=== PATIENT | male | born 1950 | race Caucasian/White ===

== ENCOUNTER 2021-08-11 21:42 | Emergency (ER) | payer MEDICARE, SELFPAY ==
[2021-08-11 22:02] VITALS: BP 154/79; PULSE 61; RESP 18; TEMP 36.9; O2SAT 97; BMI 24.3
--- NOTE | 2021-08-11 23:23 | CTR_ITS ---
PROCEDURE INFORMATION: Exam: CT Abdomen And Pelvis Without Contrast Exam date and time: 08/11/2021 11:40 PM Age: 71 years old Clinical indication: Abdominal pain; Prior surgery; Surgery type: Appy; Patient HX: C/O left flank pain TECHNIQUE: Imaging protocol: Computed tomography of the abdomen and pelvis without contrast. Radiation optimization: All CT scans at this facility use at least one of these dose optimization techniques: automated exposure control; mA and/or kV adjustment per patient size (includes targeted exams where dose is matched to clinical indication); or iterative reconstruction. COMPARISON: No relevant prior studies available. RADIATION DOSE METRICS: Total DLP (mGy-cm): 703.52 FINDINGS: Lungs: There is subsegmental atelectasis in the lung bases. Liver: The liver is normal. Gallbladder and bile ducts: The gallbladder is normal. There is no biliary dilation. Pancreas: The pancreas is unremarkable. Spleen: The spleen is unremarkable. Adrenal glands: The adrenal glands are unremarkable. Kidneys and ureters: There are nonobstructive stones in the left kidney measuring up to 2 mm. Mild left hydronephrosis and hydroureter. 3 x 3 x 2 mm stone in the distal left ureter 3 cm above the ureterovesical junction. See coronal series 602, image 23. There is a solitary nonobstructive 2 mm stone in the right kidney. There is no hydronephrosis or ureteral dilation on the right. Stomach and bowel: The stomach is decompressed, preventing meaningful evaluation of wall thickness. The small bowel is nondilated. The colon is unremarkable. Appendix: The appendix is not visible. Intraperitoneal space: There is no free air or significant intraperitoneal free fluid. Vasculature: There is mild aortic atherosclerotic disease. The portal, splenic and superior mesenteric veins are patent. Lymph nodes: There is no lymphadenopathy in the retroperitoneum, mesentery, pelvis or inguinal regions. Urinary bladder: The urinary bladder is unremarkable. Reproductive: The prostate and seminal vesicles are unremarkable. Bones/joints: Mild lower lumbar degenerative disc disease. The pelvis and hips are unremarkable. Soft tissues: The abdominal wall is intact. CT/CT kidney stone [id number] IMPRESSION: 1. 3 mm obstructive stone in the distal left ureter producing mild hydronephrosis. 2. Bilateral nonobstructive nephrolithiasis 3. Incidental findings above.
--- NOTE | 2021-08-11 23:24 | W.ED.GENADLT ---
HPI - General Adult General: Chief complaint: General Medical Stated complaint: injured back Time Seen by Provider: 08/11/21 23:23 History of Present Illness: 71-year-old male patient comes in with sudden onset of left flank pain radiating into his left lower abdomen. Patient reports pain is improved since throwing up in the emergency waiting room. Patient denies any chronic medical problems. Patient reports no routine medications. Patient does smoke cigarettes. Associated symptoms: Deny chest pain or dyspnea Review of Systems General: Reports: 10 or more systems reviewed and unremarkable except in HPI and below Card: Denies: chest pain Resp: Denies: dyspnea GI: Reports: abdominal pain : Reports: flank pain Physical Exam Const: COMMON NORMALS: no acute distress HENMT: COMMON NORMALS: normocephalic HEAD & SCALP: normocephalic Neck/C-Spine: COMMON NORMALS: full ROM Resp: COMMON NORMALS: normal respiratory effort and clear to auscultation bilaterally AUSCULTATION: clear to auscultation bilaterally Cardio: COMMON NORMALS: regular rate RATE: regular rate GI: AUSCULTATION: Yes normoactive bowel sounds PALPATION: Yes Tenderness to palpation present (GI) Details: LUQ : BLADDER/KIDNEY EXAM: Yes CVA tenderness on the left Back/Pelvis: GENERAL BACK: Yes CVA tenderness Extremity: COMMON NORMALS: normal to inspection Skin: COMMON NORMALS: no rashes or lesions noted GENERAL SKIN EXAM: no rashes or lesions noted Course Vital Signs: Vital signs: Vital Signs Temperature 98.5 F 08/11/21 22:02 Pulse Rate 61 08/11/21 22:02 Respiratory Rate 18 08/12/21 00:15 Blood Pressure 154/79 08/11/21 22:02 Pulse Oximetry 97 08/11/21 22:02 [facility] - General Adult Medical Decision Making 71-year-old male patient comes in today with left flank pain radiating around to his abdomen. Patient also reports some nausea and vomiting. Patient reports no previous episodes of similar events. Patient does have a history of chronic back pain. On exam patient appears in moderate pain. The patient does report some improvement in pain since arriving to the ER. Differential diagnosis includes but not limited to diverticulitis, renal calculi, urinary tract infection. Urinalysis had a gross amount of blood, CBC was unremarkable, CMP was unremarkable. Lipase was normal. Patient was treated with ketorolac, morphine, and Zofran with relief of all pain and discomfort. CT noted a stone in the lower third of the ureter on the left side. No significant hydronephrosis was noted. Reviewed exam with patient with recommendations for treatment follow-up with urology. Recommend return to the ER for worsening symptoms or new concerns. Patient reported understanding agreed to plan. Lab Data : 08/12/21 00:02 08/12/21 00:02 Laboratory Results WBC 8.4 10^3/uL (4.0-10.0) 08/12/21 00:02 RBC 4.56 10^6/uL (4.1-5.3) 08/12/21 00:02 Hgb 15.3 g/dL (11.7-16.6) 08/12/21 00:02 Hct 44.4 % (42.0-52.0) 08/12/21 00:02 MCV 97.4 fl (80-94) H 08/12/21 00:02 MCH 33.6 pg (28.0-34.0) 08/12/21 00:02 MCHC 34.5 g/dL (30.0-36.0) 08/12/21 00:02 RDW 11.9 % (12.1-15.1) L 08/12/21 00:02 Plt Count 203 10^3/cmm (130-400) 08/12/21 00:02 MPV 11.4 fL (7.4-10.4) H 08/12/21 00:02 Neut % (Auto) 79.6 % 08/12/21 00:02 Lymph % (Auto) 14.2 % 08/12/21 00:02 Cherry % (Auto) 4.9 % 08/12/21 00:02 Eos % (Auto) 0.2 % 08/12/21 00:02 Baso % (Auto) 0.7 % 08/12/21 00:02 Neut # (Auto) 6.72 10^3/uL (1.8-7.7) 08/12/21 00:02 Lymph # (Auto) 1.2 10^3/uL (0.8-4.8) 08/12/21 00:02 Cherry # (Auto) 0.4 10^3/uL (0.2-0.9) 08/12/21 00:02 Eos # (Auto) 0.0 10^3/uL (0.0-0.8) 08/12/21 00:02 Baso # (Auto) 0.1 10^3/uL (0.0-0.1) 08/12/21 00:02 Nucleated RBC % (auto) 0 % 08/12/21 00:02 Nucleated RBCs # 0.0 /100WBC 08/12/21 00:02 Sodium 138 mmol/L (136-145) 08/12/21 00:02 Potassium 4.1 mmol/L (3.5-5.1) 08/12/21 00:02 Chloride 103 mmol/L (98-107) 08/12/21 00:02 Carbon Dioxide 22 mmol/L (22-29) 08/12/21 00:02 Anion Gap 17.1 (5-19) 08/12/21 00:02 BUN 18 mg/dL (8-23) 08/12/21 00:02 Creatinine 1.0 mg/dL (0.7-1.2) 08/12/21 00:02 GFR Calculation 74.1 mL/min (90-130) L 08/12/21 00:02 Glucose 117 mg/dL (65-115) H 08/12/21 00:02 Calculated Osmolality 289 mOsm/kg (285-295) 08/12/21 00:02 Calcium 9.6 mg/dL (8.5-10.5) 08/12/21 00:02 Total Bilirubin 0.6 mg/dL (0.15-1.2) 08/12/21 00:02 AST 25 U/L (0-40) 08/12/21 00:02 ALT 20 U/L (0-41) 08/12/21 00:02 Alkaline Phosphatase 77 IU/L (40-130) 08/12/21 00:02 Total Protein 7.8 g/dL (6.6-8.7) 08/12/21 00:02 Albumin 4.7 g/dL (3.5-5.2) 08/12/21 00:02 Globulin 3.1 g/dL (1.3-4.6) 08/12/21 00:02 Lipase 21 U/L (13-60) 08/12/21 00:02 Urine Color Dark yellow (Yellow) 08/12/21 00:02 Urine Appearance Clear (CLEAR) 08/12/21 00:02 Urine pH 5 (5-7) 08/12/21 00:02 Ur Specific [place] 1.025 (1.005-1.030) 08/12/21 00:02 Urine Protein 1+ (Negative) H 08/12/21 00:02 Urine Glucose (UA) Norm (Normal) 08/12/21 00:02 Urine Ketones 2+ (Negative) H 08/12/21 00:02 Urine Blood 3+ (Negative) H 08/12/21 00:02 Urine Nitrate Negative (Negative) 08/12/21 00:02 Urine Bilirubin Neg (Negative) 08/12/21 00:02 Urine Urobilinogen Norm mg/dL (Negative) 08/12/21 00:02 Ur Leukocyte Esterase Negative (Negative) 08/12/21 00:02 Urine RBC Too numerous to cnt /hpf (0-2) H 08/12/21 00:02 Urine WBC 0-4 /hpf (0-5) H 08/12/21 00:02 Ur Squamous Epith Cells 0-4 /hpf (0-5) H 08/12/21 00:02 Amorphous Sediment Not Reportable 08/12/21 00:02 Urine Bacteria Trace /hpf (NONE) 08/12/21 00:02 Urine Mucus 4+ /hpf 08/12/21 00:02 Discharge Plan Discharge Patient Disposition: Home Clinical Impression: Calculus of left ureter Condition: Stable Prescriptions: New hydrocodone-acetaminophen 5-325 mg tablet 1 tab PO Q6H PRN (Reason: pain (scale score 7-10)) Qty: 20 0RF tamsulosin 0.4 mg capsule 0.4 mg PO DAILY Qty: 20 0RF ondansetron 4 mg tablet,disintegrating 4 mg PO Q8H PRN (Reason: nausea and vomiting) Qty: 10 0RF Discharge Orders: Discharge ED (Routine); Ordered 08/12/21 Ordered By: Shaan Carvajal Discharge Diet: Usual diet Discharge Activity: Increase activity as tolerated Patient Instructions: Ureteral Stones (ED), Opioid Safety Activity Restrictions/Additional Instructions: Activity as tolerated. Stay well-hydrated. Use medication as needed for pain and nausea. You can use acetaminophen or ibuprofen to control pain. Use hydrocodone for severe pain. Use ondansetron as needed for nausea and vomiting. Use tamsulosin daily to help passage of stone. Follow-up with urologist. Case management will contact you regarding follow-up appointment with the urologist. Return to ER for new concerns or worsening symptoms such as high fever, inability to hold fluids down, or uncontrolled pain. Coding Level of Care Code ED Laundry Route Driver for Vamshi Marrero Exam Comprehensive
[2021-08-12 00:15] VITALS: RESP 18
[2021-08-12] MEDS: ondansetron 2 mg/ML SDV 2 mL 4 MG IVP (00:15)
[2021-08-12] MEDS: ketorolac 30 mg/mL INJ 15 MG IVP (00:15)
[2021-08-12] MEDS: morphine 4 mg/mL SDV 1 mL IVP (00:15)
[2021-08-12 00:17] LABS: Basophils # 0.1 10^3/uL (0.0-0.1); Basophils % 0.7 %; Eosinophils % 0.2 %; Hematocrit 44.4 % (42.0-52.0); Hemoglobin 15.3 g/dL (11.7-16.6); Lymphocytes # 1.2 10^3/uL (0.8-4.8); Lymphocytes % 14.2 %; Mean Corpuscular HGB Conc 34.5 g/dL (30.0-36.0); Mean Corpuscular Hemoglobin 33.6 pg (28.0-34.0); Mean Corpuscular Volume 97.4 fl (80-94); Mean Platelet Volume 11.4 fL (7.4-10.4); Monocytes # 0.4 10^3/uL (0.2-0.9); Monocytes % 4.9 %; Neutrophils # 6.72 10^3/uL (1.8-7.7); Neutrophils % 79.6 %; Nucleated Red Blood Cells % 0 %; Platelet Count 203 10^3/cmm (130-400); Red Blood Count 4.56 10^6/uL (4.1-5.3); Red Cell Distribution Width 11.9 % (12.1-15.1); White Blood Count 8.4 10^3/uL (4.0-10.0)
[2021-08-12 00:29] LABS: Add Urine Culture? Yes; Add Urine Microscopic? YES; Bacteria Urine TRACE /hpf; Bilirubin Urine Neg (Negative); Blood Urine 3+ (Negative); Glucose Urine UA Norm (Normal); Ketones Urine 2+ (Negative); Leukocyte Esterase Urine Negative (Negative); Mucus Urine 4+ /hpf; Nitrate Urine Negative (Negative); Protein Urine 1+ (Negative); RBC Urine TOO NUMEROUS TO CNT /hpf (0-2); Specific Gravity, Urine 1.025 (1.005-1.030); Squamous Epithelial Cell Urine 0-4 /hpf (0-5); Urine Appearance Clear (CLEAR); Urine Color Dark Yellow (Yellow); Urobilinogen Urine Norm (Negative); WBC Urine 0-4 /hpf (0-5); pH Urine 5 (5-7)
[2021-08-12 00:35] LABS: Alanine Aminotransferase 20 U/L (0-41); Albumin Level 4.7 g/dL (3.5-5.2); Alkaline Phosphatase 77 IU/L (40-130); Blood Urea Nitrogen 18 mg/dL (8-23); Calcium 9.6 mg/dL (8.5-10.5); Carbon Dioxide 22 mmol/L (22-29); Chloride 103 mmol/L (98-107); Globulin 3.1 g/dL (1.3-4.6); Glomerular Filtration Rate 74.1 mL/min (90-130); Glucose 117 mg/dL (65-115); Lipase 21 U/L (13-60); Osmolality Calculated 289 mOsm/kg (285-295); Sodium 138 mmol/L (136-145); Total Bilirubin 0.6 mg/dL (0.15-1.2); Total Protein 7.8 g/dL (6.6-8.7)
[2021-08-12 00:36] LABS: Anion Gap 17.1 (5-19); Aspartate Amino Transferase 25 U/L (0-40); Potassium 4.1 mmol/L (3.5-5.1)
[2021-08-12 01:34] VITALS: BP 143/71; PULSE 71; RESP 18; TEMP 36.9; O2SAT 98
--- NOTE | 2021-08-12 10:40 | PC.SOCIAL ---
Addendum entered by Natty Wilburn 09/14/21 16:07: Patient had a follow up appointment scheduled for 08.18.[address] Norris - patient did attend appointment. Original Note: F/u appointment F/u appointment sent to urology clinic. Clinic will call patient with appointment time/date.
== END 2021-08-12 01:35 | disposition home or self-care (01) ==
PROVIDERS: Emergency Provider Nurse Practitioner Family
DX: N20.1 Calculus of ureter (principal); R11.2 Nausea with vomiting, unspecified; G89.29 Other chronic pain; M54.9 Dorsalgia, unspecified
CPT/HCPCS: 74176; 80053; 81001; 83690; 85025; 87086; 96374; 96375; 99284; J1885; J2270; J2405

== ENCOUNTER 2021-08-18 12:29 | Outpatient (CLI) | payer MEDICARE, SELFPAY ==
--- NOTE | 2021-08-18 12:37 | XR_ITS ---
WS: [id number] Exam: XR KUB [id number] Date/Time of Exam: 08/18/2021 12:37 PM Reason For Exam: stones No bowel obstruction or free air. 2 mm calcification superimposes the lower pole the left kidney. Thi s could be a renal stone. Nonspecific small left pelvic calcifications noted. No sign of organ enlarg ement. Bony structures are intact. Degenerative changes of the lower lumbar spine. XR/XR KUB [id number] IMPRESSION: 1. 2 mm calcification superimposes the lower pole left kidney and may represent a renal stone. Nonspecific left pelvic calcifications. 2. No acute abdominal process.
== END 2021-08-18 12:30 | disposition home or self-care (01) ==
LOC: RAD 12:33
PROVIDERS: Visit Provider Urology
DX: N20.1 Calculus of ureter (principal)
CPT/HCPCS: 74018; 81003; 99203

== ENCOUNTER → 2021-09-01 12:35 | Outpatient (BNVA) | payer MEDICARE, SELFPAY | PROVIDERS: Visit Provider Urology | DX: N20.1 Calculus of ureter (principal) | CPT/HCPCS: 74018; 99213 ==

== ENCOUNTER 2021-09-01 12:36 | Outpatient (CLI) | payer MEDICARE, SELFPAY | END 2021-09-01 12:37 | disposition home or self-care (01) | LOC: RAD 12:37 | PROVIDERS: Visit Provider Urology | DX: N20.0 Calculus of kidney (principal); N20.1 Calculus of ureter | CPT/HCPCS: 81003; 82365; 88300; 99213 ==

== ENCOUNTER 2022-03-13 12:33 | Outpatient (CLI) | payer MEDICARE, SELFPAY ==
--- NOTE | 2022-03-13 12:48 | XR_ITS ---
WS: [id number] KUB, AP view, 03/13/2022 Clinical Data: STONES Comparison: KUB, 09/01/2021 Findings: No abnormal intraabdominal masses or calcifications are seen. There is no dilatated small bowel or ev idence of obstruction. There is a moderate amount of fecal material throughout the colon. There is osteoarthritic spurring o f the lumbar vertebral bodies. XR/XR KUB [id number] Impression: Negative KUB.
== END 2022-03-13 12:34 | disposition home or self-care (01) ==
LOC: RAD 12:40
PROVIDERS: PCP Family Medicine; Visit Provider Urology
DX: N20.1 Calculus of ureter (principal)
CPT/HCPCS: 74018; 81003; 99213